=== PATIENT | female | born 1955 | race Caucasian/White ===

== ENCOUNTER 2016-07-04 03:03 | Inpatient (IN) | payer OTHER ==
[~2016-07-04] VITALS: Ht 172.7 cm; Wt 98.9 kg
[~2016-07-04 03:03] MED LIST: CALCIUM500 M1 PO; FLAGYL500 MG PO; FOSRENOL1000 MG PO; LEVAQUIN TAB 2250 MG PO; LYRICA50 MG PO; MIDODRINE HCL10 MG PO; NEPRO CARB ST1000 ML PO; PREDNISONE10 MG PO; PREDNISONE20 MG PO; PRILOSEC OTC20 MG PO; SENSIPAR60 MG PO; SURFAK240 MG PO; VANCOMYCIN
[2016-07-04 06:38] LABS: HEMOGLOBIN 12.5 gm/dl (12.3-15.3); RED BLOOD COUNT 3.85 M/UL (4.00-5.10); WHITE BLOOD COUNT 19.8 K/UL (4.5-11.0)
[2016-07-04 11:04] LABS: BODY FLUID SOURCE PERITONEAL
[2016-07-05 04:29] LABS: HEMOGLOBIN 11.5 gm/dl (12.3-15.3); RED BLOOD COUNT 3.57 M/UL (4.00-5.10)
[2016-07-05 04:30] LABS: WHITE BLOOD COUNT 10.6 K/UL (4.5-11.0)
[2016-07-05 09:48] LABS: BODY FLUID SOURCE PERITONEAL
[2016-07-05] MEDS ORDERED: ASPIRIN81 MG PO (10:30)
[2016-07-06 04:58] LABS: HEMOGLOBIN 11.3 gm/dl (12.3-15.3); RED BLOOD COUNT 3.5 M/UL (4.00-5.10)
[2016-07-06 12:35] LABS: BODY FLUID SOURCE PERITONEAL
[2016-07-07 04:47] LABS: HEMOGLOBIN 11.5 gm/dl (12.3-15.3); RED BLOOD COUNT 3.52 M/UL (4.00-5.10); WHITE BLOOD COUNT 8.1 K/UL (4.5-11.0)
[2016-07-07 09:38] LABS: BODY FLUID SOURCE PERITONEAL
[2016-07-08 04:32] LABS: HEMOGLOBIN 11.4 gm/dl (12.3-15.3); RED BLOOD COUNT 3.5 M/UL (4.00-5.10); WHITE BLOOD COUNT 6.1 K/UL (4.5-11.0)
[2016-07-08 09:48] LABS: BODY FLUID SOURCE PERITONEAL
[2016-07-08 12:48] LABS: HEMOGLOBIN 11.9 gm/dl (12.3-15.3); RED BLOOD COUNT 3.61 M/UL (4.00-5.10)
[2016-07-08 12:58] LABS: WHITE BLOOD COUNT 8.2 K/UL (4.5-11.0)
[2016-07-09 06:30] LABS: HEMOGLOBIN 11.1 gm/dl (12.3-15.3); RED BLOOD COUNT 3.41 M/UL (4.00-5.10); WHITE BLOOD COUNT 7.2 K/UL (4.5-11.0)
[2016-07-10 04:31] LABS: HEMOGLOBIN 11.3 gm/dl (12.3-15.3); RED BLOOD COUNT 3.48 M/UL (4.00-5.10); WHITE BLOOD COUNT 8.7 K/UL (4.5-11.0)
[2016-07-10 10:53] LABS: BODY FLUID SOURCE PERITONEAL
[2016-07-11 04:40] LABS: HEMOGLOBIN 11.5 gm/dl (12.3-15.3); RED BLOOD COUNT 3.55 M/UL (4.00-5.10)
[2016-07-11 04:43] LABS: WHITE BLOOD COUNT 16.8 K/UL (4.5-11.0)
[2016-07-12 04:43] LABS: HEMOGLOBIN 12.1 gm/dl (12.3-15.3); RED BLOOD COUNT 3.67 M/UL (4.00-5.10); WHITE BLOOD COUNT 13.7 K/UL (4.5-11.0)
[2016-07-13 06:36] LABS: HEMOGLOBIN 11.1 gm/dl (12.3-15.3); RED BLOOD COUNT 3.43 M/UL (4.00-5.10); WHITE BLOOD COUNT 15.4 K/UL (4.5-11.0)
[2016-07-14 06:22] LABS: HEMOGLOBIN 11.1 gm/dl (12.3-15.3); RED BLOOD COUNT 3.34 M/UL (4.00-5.10); WHITE BLOOD COUNT 12.4 K/UL (4.5-11.0)
[2016-07-15 07:02] LABS: HEMOGLOBIN 11.1 gm/dl (12.3-15.3); RED BLOOD COUNT 3.43 M/UL (4.00-5.10); WHITE BLOOD COUNT 10.4 K/UL (4.5-11.0)
[2016-07-15 07:56] LABS: BODY FLUID SOURCE PERITONEAL
[2016-07-16 03:57] LABS: HEMOGLOBIN 10.7 gm/dl (12.3-15.3); RED BLOOD COUNT 3.3 M/UL (4.00-5.10); WHITE BLOOD COUNT 9.8 K/UL (4.5-11.0)
[2016-07-16 13:06] LABS: BODY FLUID SOURCE PERITONEAL
[2016-07-17 04:08] LABS: RED BLOOD COUNT 3.36 M/UL (4.00-5.10); WHITE BLOOD COUNT 8.3 K/UL (4.5-11.0)
[2016-07-17 09:58] LABS: BODY FLUID SOURCE PERITONEAL
[2016-07-18 04:04] LABS: RED BLOOD COUNT 3.39 M/UL (4.00-5.10); WHITE BLOOD COUNT 7.7 K/UL (4.5-11.0)
[2016-07-19 04:07] LABS: HEMOGLOBIN 11.2 gm/dl (12.3-15.3); RED BLOOD COUNT 3.47 M/UL (4.00-5.10); WHITE BLOOD COUNT 8.2 K/UL (4.5-11.0)
[2016-07-19 09:00] LABS: BODY FLUID SOURCE PERITONEAL
[2016-07-19] MEDS ORDERED: VANCOCIN 125MG/2.5ML IV (10:24)
[2016-07-19] MEDS ORDERED: ASPIR 8181 MG PO (10:25)
[2016-07-19] MEDS ORDERED: PHOSLO 667 MG667 MG PO (10:27)
[2016-07-19] MEDS ORDERED: CALCIUM CARBON500 MG PO (10:29)
[2016-07-19] MEDS ORDERED: NEPRO CARB ST1000 ML PO (10:30)
[2016-07-19] MEDS ORDERED: FLORINEF 0.1 M0.1 MG PO (10:33)
[2016-07-19] MEDS ORDERED: GENTAMICIN SULF30 GM TP (10:36)
[2016-07-19] MEDS ORDERED: NYSTATIN100000 UNI PO (10:42)
[2016-07-19] MEDS ORDERED: PROTONIX40 MG PO (10:43)
[2016-07-19] MEDS ORDERED: COUMADIN2 MG PO (10:45)
[2016-07-19] MEDS ORDERED: LOVENOX SYR100 MG/ML SQ (10:51)
[2016-07-19] MEDS ORDERED: KLOR-CON M2020 MEQ PO (10:55)
== END 2016-07-19 11:29 | disposition home health service (06) | DRG 919 ==
LOC: CCU 04:08 → PROG CARE 04:08
PROVIDERS: Emergency Medicine; Internal Medicine; Internal Medicine Nephrology; ADMIT Internal Medicine
PROC: B246ZZ4 Ultrasonography of Right and Left Heart, Transesophageal (ICD-10-PCS; principal; 2016-07-08)
DX: T85.71XA Infection and inflammatory reaction due to peritoneal dialysis catheter, initial encounter (principal); K65.0 Generalized (acute) peritonitis; N18.6 End stage renal disease; I33.0 Acute and subacute infective endocarditis; I12.0 Hypertensive chronic kidney disease with stage 5 chronic kidney disease or end stage renal disease; E27.49 Other adrenocortical insufficiency; E87.6 Hypokalemia; K74.60 Unspecified cirrhosis of liver; I48.91 Unspecified atrial fibrillation; I95.89 Other hypotension; E83.51 Hypocalcemia; I35.8 Other nonrheumatic aortic valve disorders; Y73.3 Surgical instruments, materials and gastroenterology and urology devices (including sutures) associated with adverse incidents; E55.9 Vitamin D deficiency, unspecified; R79.1 Abnormal coagulation profile; T45.515A Adverse effect of anticoagulants, initial encounter; Z99.2 Dependence on renal dialysis; K21.9 Gastro-esophageal reflux disease without esophagitis; K42.9 Umbilical hernia without obstruction or gangrene; M19.90 Unspecified osteoarthritis, unspecified site; M10.9 Gout, unspecified; F17.210 Nicotine dependence, cigarettes, uncomplicated; E66.9 Obesity, unspecified; Z68.33 Body mass index [BMI] 33.0-33.9, adult; Z72.3 Lack of physical exercise; Z79.899 Other long term (current) drug therapy; Z88.3 Allergy status to other anti-infective agents; Z90.710 Acquired absence of both cervix and uterus; Z98.890 Other specified postprocedural states; Z83.3 Family history of diabetes mellitus
CPT/HCPCS: ECHO; 36415; 71275; 76830; 80048; 80053; 80202; 82330; 82962; 83036; 83735; 83970; 83986; 84100; 84439; 84443; 85025; 85027; 85610; 85730; 86140; 87040; 87070; 87205; 89051; 93005; 93306; 93312; 93320; 97110; 97116; 97530; J0153; J0713; J1270; J1335; J1644; J1650; J1720; J2185; J2250; J2370; J2405; J3010; J3370; J7030; J7040; J7050; J7070; Q9962; Q9963; Q9965